=== PATIENT | male | born 1945 | race Caucasian/White ===

== ENCOUNTER → 2021-04-11 | Emergency (ER) | payer MEDICAID, MEDICARE ==
[~2021-04-11] MED LIST: Aspirin 325 MG TAB ONE; Enoxaparin Sodium 100 MG/ML SYRINGE ONE; Enoxaparin Sodium 100 MG/ML SYRINGE SC SCH; Morphine 4 MG/ML VIAL ONE
[2021-04-11 21:20] LABS: #Basophils 0.1 10x3/uL (0.0-0.2); #Eosinphils 0.1 10x3/uL (0.0-0.5); #Neutrophils 10.7 10x3/uL (1.5-8.4); %Basophils 0.5 % (0.0-2.0); %Eosinophils 0.5 % (0.0-6.0); %Lymphocytes 9.3 % (18.0-47.0); %Monocytes 7.4 % (0.0-10.0); %Neutrophils 81.8 % (40.0-75.0); Hemoglobin 10.8 g/dL (13.5-17.5); Mean Corpuscular HGB CONC 32.7 g/dL (32.0-36.0); Mean Corpuscular Hemoglobin 30.8 pg (27.0-33.0); Mean Platelet Volume 9.1 fl (7.4-10.4); Platelet Count 285 10x3/uL (150-450); RBC Distribution Width 14.6 % (11.5-14.5); Red Blood Cell (RBC) Count 3.51 10x6/uL (4.32-5.72); White Blood Cell (WBC) Count 13.1 10x3/uL (3.5-10.5)
[2021-04-11 21:31] LABS: ALT (SGPT) 25 U/L (8-55); AST (SGOT) 31 U/L (5-34); Albumin 3.5 g/dL (3.4-4.8); Alkaline Phosphatase 87 U/L (40-110); Anion Gap 15 mmol/L (10-20); BUN (Urea Nitrogen) 17 mg/dL (8.4-25.7); Bilirubin, Total 1.6 mg/dL (0.2-1.2); Calc. Creatinine Clearance 0 mL/min (70-130); Calcium 8.2 mg/dL (7.8-10.44); Carbon Dioxide 19 mmol/L (23-31); Chloride 105 mmol/L (98-107); Globulin 3.9 g/dL (2.4-3.5); Glucose 210 mg/dL (83-110); Potassium 4.8 mmol/L (3.5-5.1); Protein, Total 7.4 g/dL (5.8-8.1); Sodium 134 mmol/L (136-145)
[2021-04-11 21:45] LABS: SARS-CoV-2 NAA Rapid Test Not Detected (NotDetected)
[2021-04-11 21:55] LABS: CKMB 1.1 ng/mL (0-6.6)
[2021-04-12 03:35] LABS: Troponin I 0.116 ng/mL (< 0.028)
[2021-04-12 07:26] LABS: Troponin I 0.169 ng/mL (< 0.028)
[2021-04-12 10:19] LABS: Troponin I 0.132 ng/mL (< 0.028)
== END ==
LOC: CSHERS 20:34
DX: I26.99 Other pulmonary embolism without acute cor pulmonale (principal); R09.02 Hypoxemia; E11.9 Type 2 diabetes mellitus without complications; I10 Essential (primary) hypertension; Z79.899 Other long term (current) drug therapy; Z20.822 Contact with and (suspected) exposure to COVID-19
CPT/HCPCS: 0240U; 71045; 71275; 80053; 82553; 83880; 84484 ×2; 85025; 93005; 96372; 96374; 96376; 99285; 36415; J1650; J2270